=== PATIENT | female | born 1990 | race Asian ===

== ENCOUNTER 2018-02-16 07:20 | Inpatient (IN) | payer OTHER ==
[~2018-02-16] VITALS: Ht 162.6 cm; Wt 79.5 kg
[2018-02-16] VITALS (29 sets, daily range): BP systolic 110–147; BP diastolic 62–86
[2018-02-16] MEDS ORDERED: D5 LR IV SOLUTION 1,000 ML IV SCH (08:37)
[2018-02-16] MEDS ORDERED: OXYTOCIN/NORMAL SALINE 500 ML IV SCH ×2 (08:37→19:49)
[2018-02-16] MEDS: metroNIDAZOLE 500MG/100ML IVPB 100 ML ONE ×2 (08:42→20:42)
[2018-02-16 08:57] LABS: BASOPHILS % (AUTO) 0 % (0-10); EOSINOPHILS # (AUTO) 0.2 10^3/uL (0.0-0.3); EOSINOPHILS % (AUTO) 2 % (0-10); HEMATOCRIT 34 % (35-52); HEMOGLOBIN 10.2 G/DL (11.5-16.0); LYMPHOCYTES % (AUTO) 24 % (12-44); MEAN CORPUSCULAR HEMOGLOBIN 24 PG (25-34); MEAN CORPUSCULAR HGB CONC 30 G/DL (32-36); MEAN CORPUSCULAR VOLUME 79 FL (80-99); MEAN PLATELET VOLUME 10.8 FL (7.4-10.4); MONOCYTES # (AUTO) 0.9 X 10^3 (0.0-1.0); MONOCYTES % (AUTO) 7 % (0-12); NEUTROPHILS # (AUTO) 8.6 X 10^3 (1.8-7.8); NEUTROPHILS % (AUTO) 68 % (42-75); PLATELET COUNT 313 10^3/uL (130-400); RED BLOOD COUNT 4.24 10^6/uL (4.35-5.85); RED CELL DISTRIBUTION WIDTH 16.8 % (10.0-14.5); WHITE BLOOD COUNT 12.7 10^3/uL (4.3-11.0)
[2018-02-16] MEDS ORDERED: CATHETER FLUSH 10 ML SYR IV SCH (14:00)
--- NOTE | 2018-02-16 16:54 | History & Physical ---
History and Physical Date Seen by Provider: Feb 16, 2018 Time Seen by Provider: 16:50 This patient is a 26-year-old G1 [place] female with an EDC of February 12, 2018 admitted now at 40-4/7 weeks' gestation for induction of labor. Denies rupture membranes or bleeding. She is having some contractions and she reports are uncomfortable. Her cervix was dilated about 2 cm when last seen in clinic and it was dilated that ointment patient had GBS culture performed after 35 weeks gestation that was reported as negative. Allergies are none hemoglobin white blood cell count and platelet count are normal Laboratory Tests 02/16/18 08:05 Medications are vitamins Past medical, past surgical, obstetric, family, and social histories are per the antepartum record HEENT exam is normal Neck is supple no lymphadenopathy and no thyromegaly Abdomen is gravid soft nontender nondistended Extremities show no clubbing or cyanosis. There is no Homans sign. Pelvic exam per the admitting nurse is as recorded in her chart. monitor shows normal heart rate pattern with occasional contractions on admission. Currently patient is michelle about every 3 minutes on her Pitocin at 18 mU/m Assessment and plan and 4/7 weeks' gestation and a primary gravid patient who has been admitted this morning and has been on Pitocin through the day for induction of labor. She has tolerated infection well. heart rate pattern has been reassuring. Plan is continue with labor induction with Pitocin. Post dates admitted for labor induction Allergies and Home Medications Allergies Coded Allergies: No Known Drug Allergies (Unverified , 02/16/18) Patient Home Medication List Home Medication List Reviewed: No Clinical Quality Measures DVT/VTE Risk/Contraindication: Risk Factor Score Per Nursin RFS Level Per Nursing on Admit: 1=Low/No VTE PPX ARIELLE QUICK MD Feb 16, 2018 4:54 pm
[2018-02-16] MEDS ORDERED: CITRIC ACID/SOB CIT (BICITRA) 30 ML UDC ONE (19:36)
[2018-02-16] MEDS ORDERED: METOCLOPRAMIDE INJ 10 MG/2 ML (REGLAN) ONE (19:36)
[2018-02-16] MEDS ORDERED: raNItidine 50 MG/2 ML INJ (ZANTAC) ONE (19:36)
[2018-02-16] MEDS ORDERED: ceFAZolin 2 GM IV Premixed 50 ML ONE (19:37)
[2018-02-16] MEDS ORDERED: TERBUTALINE INJ 1 MG/ML (BRETHINE) AMP ONE (19:44)
[2018-02-16] MEDS ORDERED: IBUP-1780 PO (19:54)
[2018-02-16] MEDS ORDERED: DOCU-143 PO (19:54)
[2018-02-16] MEDS ORDERED: OXYC-465 PO (19:54)
[2018-02-16] MEDS ORDERED: D5 LR IV SOLUTION 1,000 ML IV ONE (19:57)
--- NOTE | 2018-02-16 19:59 | Discharge Instructions ---
Discharge Instructions Discharge Medications New, Converted or Re-Newed RX: RX on Chart Patient Instructions Patient Instructions: Per instructions Return to The Hospital For: Per instructions Activity & Diet Discharge Diet: No Restrictions Activity as Tolerated: No Orders-Post D/C & Referrals Follow Up Appt: RTC on Friday, February 23, 2018 at 930 a.m. for incision check. Call to make follow up appt. for patient in 4 weeks. Wound Care: Remove ciarra, apply benzoin and steri strips. Activity Per routine post instructions. Diet as tolerated Patient may shower or tub bathe as desired. Continue home meds ARIELLE QUICK MD Feb 16, 2018 7:59 pm
[2018-02-16] MEDS ORDERED: metroNIDAZOLE 500MG/100ML IVPB 100 ML IV ONE (20:00)
[2018-02-16] MEDS ORDERED: TETANUS,DIPTH,PERTUSS P/F (BOOSTRIX) 0.5 ML VIAL IM ONE (20:00)
[2018-02-16] MEDS ORDERED: MEASLES,MUMPS,RUBELLA 1 EA INJ SC ONE (20:00)
[2018-02-16] MEDS ORDERED: MEPERIDINE (DEMEROL) INJ 100 MG/ML IM PRN (20:00)
[2018-02-16] MEDS ORDERED: ceFAZolin INJECTION 2,000 MG in NS (IVPB) 50 ML IV ONE (20:00)
[2018-02-16] MEDS ORDERED: PROMETHAZINE INJ 25 MG/ML (PHENERGAN) AMP IM PRN (20:00)
[2018-02-16] MEDS ORDERED: ONDANSETRON 4 MG/2 ML (SDV) Z0FRAN IVP PRN ×2 (20:00→21:30)
[2018-02-16] MEDS ORDERED: BUPIVACAINE 0.75% PRESERVATIVE FREE 10 ML ONE (20:06)
[2018-02-16] MEDS ORDERED: BUPIVACAINE 0.5% 30 ML (SENSORCAINE) VIAL ONE (20:07)
[2018-02-16] MEDS ORDERED: fentaNYL INJECTION 100 MCG/2 ML AMP ONE (20:12)
[2018-02-16] MEDS ORDERED: LIDOCAINE PF 2% 5 ML (XYLOCAINE) VIAL ONE (20:18)
[2018-02-16] MEDS ORDERED: OXYTOCIN/NORMAL SALINE 500 ML IV ONE ×2 (21:17→21:18)
[2018-02-16] MEDS ORDERED: HYDROmorphone 1 MG/ML (DILAUDID) 1 ML SYRINGE IV PRN (21:30)
[2018-02-16] MEDS ORDERED: fentaNYL INJECTION 100 MCG/2 ML AMP IVP PRN (21:30)
[2018-02-16] MEDS: KETOROLAC 30 MG/ML VIAL IVP SCH (21:30)
[2018-02-16] MEDS: DOCUSATE SODIUM 100 MG (COLACE) CAP PO SCH (23:49)
[2018-02-17] MEDS ORDERED: METOCLOPRAMIDE INJ 10 MG/2 ML (REGLAN) IV ONE (00:45)
[2018-02-17] MEDS ORDERED: CITRIC ACID/SOB CIT (BICITRA) 30 ML UDC PO ONE (00:45)
[2018-02-17] MEDS ORDERED: CATHETER FLUSH 10 ML SYR IV PRN (00:45)
[2018-02-17] MEDS ORDERED: raNItidine INJECTION 50 MG in NS (IVPB) 50 ML IV ONE (00:45)
[2018-02-17] MEDS: oxyCODONE/APAP 10/325MG (PERCOCET 10) TABLET PO PRN ×3 (01:42→14:12)
[2018-02-17] MEDS ORDERED: TERBUTALINE INJ 1 MG/ML (BRETHINE) AMP SC ONE (03:15)
[2018-02-17] MEDS: KETOROLAC 30 MG/ML VIAL IVP SCH (03:40)
[2018-02-17 03:45] VITALS: BP 117/71
--- NOTE | 2018-02-17 07:10 | OPERATIVE REPORT ---
DATE OF SERVICE: 02/16/2018 PREOPERATIVE DIAGNOSIS: Postdates in labor with failure to progress. POSTOPERATIVE DIAGNOSIS: Postdates in labor with failure to progress with cephalopelvic disproportion. OPERATIVE PROCEDURE: Primary low transverse delivery of a viable female infant with Apgars of 8 and 9 at 1 and 5 minutes. Expected weight of 8 pounds. Cord blood pH of 7.28 and a time of 20:49. OPERATIVE DESCRIPTION: With the patient in supine position under satisfactory spinal anesthesia, she was prepped and draped in the usual fashion for abdominal surgery. Coffman catheter was placed in the urinary bladder. A Pfannenstiel incision made through the skin with a scalpel. The patient's abdomen entered in the usual manner. Bladder retractor was placed in position, clean scalpel was used to make a 4 cm hysterotomy incision transversely across loading segment. That was extended by blunt dissection as well. Jerez forceps were applied to facilitate the delivery of a vigorous viable male . Infant had stats as noted above. The infant was bulb suctioned on delivery of the head and again on completion of delivery. There was a nuchal cord that was easily released. The was dried, warmed and stimulated while the umbilical cord was doubly clamped and then cut and the was passed to the pediatric nurse in attendance for delivery. Cord bloods were obtained. The placenta delivered spontaneously Horta. It was normal with a 3-vessel cord. The uterus was exteriorized and to wipe clean with a wet laparotomy sponge. Uterine incision was then closed with a running locked suture of 2-0 Vicryl. The uterus was quite atonic. Blood loss was not excessive at this point, but the uterus was not michelle adequately in response to of the Pitocin. Therefore, a modified B-Capps suture was placed using 2-0 chromic sutures. This compressed the uterus nicely and kept it firm. The uterus was then returned to the abdominal cavity. All blood clot and debris was removed from the abdominal cavity. Sponge and needle counts correct, hemostasis assured. The anterior peritoneum was closed with a running suture of 2-0 Vicryl. The rectus muscles were closed with that suture as well as the rectus fascia was closed with 2-0 Vicryl, subcutaneous tissue was closed with 2-0 Vicryl and the skin was stapled. Sponge, needle counts were correct at the end of the procedure. Estimated blood loss for the procedure was around 500 mL. The patient tolerated the procedure well and was transferred to recovery room in stable condition. had been taken stable to the full term nursery under the care of the pediatric nurse. Job ID: [id number] DocumentID: [id number] Dictated Date: 02/16/2018 21:13:05 [employer] Date: 02/17/2018 07:09:22 Dictated By: ARIELLE QUICK MD
[2018-02-17 08:30] VITALS: BP 116/68
--- NOTE | 2018-02-17 08:37 | Anesthesia-Regional Post-Op ---
Regional Patient Condition Mental Status: Alert, Oriented x3 Circulation: Same as Pre-Op Headache: Absent Sensation: Full Recovery Motor Block: Absent Post Op Complications Complications None Follow Up Care/Instructions Patient Instructions None needed. Anesthesia/Patient Condition Patient is doing well, no complaints, stable vital signs, no apparent adverse anesthesia problems. No complications reported per nursing. [place] [facility] [place] Yes VY ROBERTS CRNA Feb 17, 2018 08:37
[2018-02-17] MEDS ORDERED: IBUPROFEN 800 MG (MOTRIN) TAB PO ONE (09:49)
[2018-02-17] MEDS: DOCUSATE SODIUM 100 MG (COLACE) CAP PO SCH ×2 (09:54→22:18)
[2018-02-17] MEDS: IBUPROFEN 800 MG (MOTRIN) TAB PO SCH ×3 (09:55→22:17)
[2018-02-17 13:30] VITALS: BP 135/85
[2018-02-17] MEDS ORDERED: TETANUS,DIPTH,PERTUSS P/F (BOOSTRIX) 0.5 ML VIAL IM ONE (14:09)
[2018-02-17 16:30] VITALS: BP 126/79
[2018-02-17 21:05] VITALS: BP 141/87
--- NOTE | 2018-02-17 23:59 | Progress Note-Standard ---
Standard Progress Note Progress Notes/Assess & Plan Date Seen by Provider: Feb 17, 2018 Time Seen by Provider: 23:58 Progress/Assessment & Plan Patient is without complaint. She is ambulating, voiding, tolerating by mouth well, has good pain control. Vital Signs 02/17/18 21:05 Temp 98.4 Pulse 90 Resp 18 B/P (MAP) 141/87 (105) Pulse Ox 100 O2 Delivery Room Air Vital signs are stable. Patient is afebrile. Fundus is firm below the umbilicus nontender. Extremities show no clubbing or cyanosis. There is no Homans sign. Assessment and plan post operative day number 1 status post primary delivery doing well. Plan is for routine convalescence. ARIELLE QUICK MD Feb 17, 2018 11:59 pm
[2018-02-18 00:55] VITALS: BP 129/82
[2018-02-18 03:42] VITALS: BP 136/78
[2018-02-18] MEDS: IBUPROFEN 800 MG (MOTRIN) TAB PO SCH ×3 (03:43→17:05)
[2018-02-18 10:35] VITALS: BP 125/83
[2018-02-18] MEDS: DOCUSATE SODIUM 100 MG (COLACE) CAP PO SCH (10:39)
--- NOTE | 2018-02-18 14:35 | Progress Note-Standard ---
Standard Progress Note Progress Notes/Assess & Plan Date Seen by Provider: Feb 18, 2018 Time Seen by Provider: 14:33 Progress/Assessment & Plan Patient is without complaint. She is ambulating, voiding, tolerating by mouth well, has good pain control. Vital Signs 02/17/18 21:05 Temp 98.4 Pulse 90 Resp 18 B/P (MAP) 141/87 (105) Pulse Ox 100 O2 Delivery Room Air Vital signs are stable. Patient is afebrile. Fundus is firm below the umbilicus nontender. Extremities show no clubbing or cyanosis. There is no Homans sign. Assessment and plan post operative day number 1 status post primary delivery doing well. Plan is for routine convalescence. February 18, 2018 Patient is without complaint. She is ambulating, voiding, tolerating by mouth well, has good pain control. Patient denies chest pain, denies shortness of breath, denies nausea vomiting, denies headache. Patient is unsure whether she wants to be discharged today or tomorrow. Vital Signs Date Time Temp Pulse Resp B/P (MAP) Pulse Ox O2 Delivery O2 Flow Rate FiO2 02/18/18 10:35 98.8 98 18 125/83 (97) 100 Room Air 02/18/18 03:42 98.1 108 18 136/78 (97) 100 Room Air 02/18/18 00:55 98.1 107 18 129/82 (98) 100 Room Air 02/17/18 21:05 98.4 90 18 141/87 (105) 100 Room Air 02/17/18 16:30 99.3 109 18 126/79 (95) 100 Room Air I & O 02/18/18 07:00 Intake Total 1800 ml Output Total 5925 ml Balance -4125 ml Vital signs are stable. Patient is afebrile. The abdomen is benign. Extremities show clubbing cyanosis. There is no Homans sign. There is some pretibial pitting edema that is normal. Assessment and plan postoperative day number 2 status post primary delivery doing well. Patient will be discharged today or tomorrow as she prefers. Final Diagnosis Postdates primary delivery ARIELLE QUICK MD Feb 18, 2018 2:35 pm
[2018-02-18 17:00] VITALS: BP 122/80
== END 2018-02-18 19:10 | disposition home or self-care (01) | DRG 766 ==
LOC: LDRP 07:20
PROVIDERS: ADMIT Obstetrics & Gynecology; ATTEND Obstetrics & Gynecology
PROC: 3E033VJ Introduction of Other Hormone into Peripheral Vein, Percutaneous Approach (ICD-10-PCS; 2018-02-16)
PROC: 10D00Z1 Extraction of Products of Conception, Low, Open Approach (ICD-10-PCS; principal; 2018-02-16 20:25)
DX: O48.0 Post-term pregnancy (principal); O33.9 Maternal care for disproportion, unspecified; Z3A.40 40 weeks gestation of pregnancy; Z37.0 Single live birth; Z23 Encounter for immunization
CPT/HCPCS: 36415; 85025; 86850; 86900; 86901; 90715; 94664